=== PATIENT | male | born 1940 | race Hispanic/Latino ===

== ENCOUNTER 2018-04-15 14:24 | Inpatient (IN) | payer OTHER ==
[~2018-04-15] VITALS: Ht 160 cm; Wt 75.3 kg
[~2018-04-15 14:24] MED LIST: APIX5TAB PO; ASPI-1146 PO; ATOR40TA69 PO; DUTA0.5C17 PO; GLIP1TAB6 PO; LISI40TA4 PO; NITR0.4T SL
[2018-04-15 15:12] LABS: POTASSIUM 5.4 mmol/L (3.5-5.1)
[2018-04-15 15:14] LABS: INR 1.09 (0.85-1.15); PARTIAL THROMBOPLASTIN TIME 28.3 SEC (26.3-35.5); PROTHROMBIN TIME 11.4 SEC (9.6-11.6)
[2018-04-15 15:16] LABS: ALBUMIN 3.6 g/dL (3.5-5.0); BILIRUBIN,TOTAL 0.5 mg/dL (0.2-1.0); MAGNESIUM 1.9 mg/dL (1.80-2.40); TOTAL PROTEIN, SERUM 7.2 g/dL (6.0-8.3)
[2018-04-15 15:18] VITALS: BP 140/61
[2018-04-15 15:34] LABS: BASOPHILS % (AUTO) 0.6 % (0.0-5.0); EOSINOPHILS % (AUTO) 2.5 % (0.0-8.0); HEMATOCRIT 38.1 % (42-54); LYMPHOCYTES % (AUTO) 25.1 % (21.0-51.0); MEAN CORPUSCULAR HEMOGLOBIN 30.2 pg (27.0-33.0); MEAN CORPUSCULAR HGB CONC 34.1 g/dL (32.0-36.0); MEAN CORPUSCULAR VOLUME 88.8 fL (79-99); MONOCYTES % (AUTO) 5.3 % (3.0-13.0); NEUTROPHILS % (AUTO) 66.5 % (40.0-77.0); PLATELET COUNT (AUTO) 185 K/uL (130-400); RED BLOOD CELL COUNT(AUTO) 4.28 MIL/uL (4.50-6.20); RED CELL DISTRIBUTION WIDTH 15.4 % (11.0-15.5)
[2018-04-15] MEDS ORDERED: GLIP1TAB6 PO (15:37)
[2018-04-15] MEDS ORDERED: PIND10TA2 PO (15:37)
[2018-04-15] MEDS ORDERED: SIMV20TA6 PO (15:37)
[2018-04-15 15:44] LABS: B-TYPE NATRIURETIC PEPTIDE 1710 pg/mL (0-100)
[2018-04-15] MEDS ORDERED: SODIUM CHLORIDE 0.9% 10 ML VIAL IVP PRN (16:00)
[2018-04-15 16:36] VITALS: BP 107/73
[2018-04-15] MEDS ORDERED: FUROSEMIDE 10 MG/ML 4ML VIAL IVP SCH (16:45)
[2018-04-15 19:45] LABS: ABG BASE EXCESS -2.6 mmol/L (-2.0-3.0); ABG HCO3 21.2 mmol/L (21.0-28.0); ABG OXYGEN SATURATION 95.6 % (95.0-99.0); ABG PCO2 34 mmHg (35-48)
[2018-04-15] MEDS ORDERED: APIXABAN 5 MG TABLET PO ONE (19:57)
[2018-04-15] MEDS: PINDOLOL 5 MG TAB PO SCH (19:58)
[2018-04-15] MEDS: APIXABAN 5 MG TABLET PO SCH (19:58)
[2018-04-15] MEDS: SIMVASTATIN 20 MG TABLET PO SCH (19:59)
[2018-04-15 20:05] VITALS: BP 137/71
[2018-04-15 20:43] LABS: APPEARANCE,URINE Clear (CLEAR); BILIRUBIN,URINE Negative (NEGATIVE); COLOR,URINE Yellow (YELLOW); GLUCOSE, URINE (UA) Negative (NEGATIVE); KETONES,URINE Negative (NEGATIVE); LEUKOCYTE ESTERASE ,URINE Negative (NEGATIVE); NITRATE,URINE Negative (NEGATIVE); OCCULT BLOOD,URINE Negative (NEGATIVE); PROTEIN,URINE POS 2+ (NEGATIVE); UROBILINOGEN,URINE 0.2 mg/dL (0.2-1.0)
[2018-04-15 21:20] LABS: BACTERIA,URINE Rare /HPF (None Seen); RBC,URINE 0-1 /HPF (0-1); SQUAMOUS EPITHELIAL CELL,UR Rare /HPF (0-2); WBC,URINE 0-1 /HPF (0-1)
[2018-04-16] VITALS (8 sets, daily range): BP systolic 104–169; BP diastolic 53–76
[2018-04-16 03:53] LABS: HEMATOCRIT 36.3 % (42-54); MEAN CORPUSCULAR HEMOGLOBIN 29.4 pg (27.0-33.0); MEAN CORPUSCULAR VOLUME 86.6 fL (79-99); NUCLEATED RED BLOOD CELLS 0.1 % (0.0-0.19); PLATELET COUNT (AUTO) 163 K/uL (130-400); RED BLOOD CELL COUNT(AUTO) 4.19 MIL/uL (4.50-6.20); RED CELL DISTRIBUTION WIDTH 15.2 % (11.0-15.5); WHITE BLOOD COUNT (AUTO) 7.9 K/uL (4.8-10.8)
[2018-04-16 04:02] LABS: CREATININE 2.2 mg/dL (0.5-1.5); POTASSIUM 4.8 mmol/L (3.5-5.1)
[2018-04-16 04:11] LABS: BAND NEUTROPHILS % (MANUAL) 7 % (0-2); EOSINOPHILS % (MANUAL) 1 % (1-6); LYMPHOCYTES % (MANUAL) 23 % (22-44); MAN.DIFF COMMENT-IMPRESSION MANUAL DIFFERENTIAL; MONOCYTES % (MANUAL) 5 % (2-9); PLATELET MORPHOLOGY COMMENT ADEQUATE; REACTIVE LYMPHOCYTES 4 % (0-0); SEGMENTED NEUTROPHILS % 60 % (40-70)
[2018-04-16] MEDS ORDERED: GLIPIZIDE 5 MG TABLET PO SCH (07:30)
[2018-04-16] MEDS ORDERED: FUROSEMIDE 10 MG/ML 4ML VIAL IV SCH (07:45)
[2018-04-16] MEDS: PINDOLOL 5 MG TAB PO SCH ×2 (08:09→18:59)
[2018-04-16] MEDS: LISINOPRIL 20 MG TABLET PO SCH (08:09)
[2018-04-16] MEDS: ASPIRIN 81MG TAB.CHEW PO SCH (08:10)
[2018-04-16] MEDS: APIXABAN 5 MG TABLET PO SCH ×2 (08:10→21:52)
[2018-04-16] MEDS ORDERED: ENOXAPARIN SODIUM 80 MG/0.8 ML SQ SCH (09:00)
[2018-04-16] MEDS: AVODART 0.5 MG PO SCH (09:00)
[2018-04-16 10:19] LABS: PROTEIN,URINE RANDOM 64.7 mg/dL (0-11.9)
[2018-04-16] MEDS ORDERED: IPRATROPIUM 0.5 MG/2.5 ML INH IH PRN (15:30)
[2018-04-16] MEDS: GLIPIZIDE 5 MG TABLET PO SCH (19:01)
[2018-04-16] MEDS: SIMVASTATIN 20 MG TABLET PO SCH (21:52)
[2018-04-17] VITALS (7 sets, daily range): BP systolic 113–145; BP diastolic 57–70
[2018-04-17 03:50] LABS: HEMATOCRIT 35.6 % (42-54); MEAN CORPUSCULAR HEMOGLOBIN 30.1 pg (27.0-33.0); MEAN CORPUSCULAR HGB CONC 34.8 g/dL (32.0-36.0); MEAN CORPUSCULAR VOLUME 86.6 fL (79-99); PLATELET COUNT (AUTO) 174 K/uL (130-400); RED BLOOD CELL COUNT(AUTO) 4.11 MIL/uL (4.50-6.20); RED CELL DISTRIBUTION WIDTH 15.1 % (11.0-15.5); WHITE BLOOD COUNT (AUTO) 6.7 K/uL (4.8-10.8)
[2018-04-17 03:58] LABS: AMMONIA < 3 umol/L (11-32); CARBON DIOXIDE 25 mmol/L (21-32); CHLORIDE 106 mmol/L (101-111); CREATININE 2.2 mg/dL (0.5-1.5); GLOMERULAR FILTR. RATE CALC 31 mL/min (>60); GLUCOSE,RANDOM 117 mg/dL (70-105); POTASSIUM 4.2 mmol/L (3.5-5.1); SODIUM SERUM 140 mmol/L (136-145); UREA NITROGEN, BLOOD 35 mg/dL (7-18)
[2018-04-17 04:44] LABS: BASOPHILS % (MANUAL) 1 % (0-2); EOSINOPHILS % (MANUAL) 3 % (1-6); LYMPHOCYTES % (MANUAL) 37 % (22-44); MAN.DIFF COMMENT-IMPRESSION MANUAL DIFFERENTIAL; MONOCYTES % (MANUAL) 7 % (2-9); SEGMENTED NEUTROPHILS % 52 % (40-70)
[2018-04-17 04:46] LABS: PLATELET MORPHOLOGY COMMENT ADEQUATE
[2018-04-17] MEDS: PINDOLOL 5 MG TAB PO SCH ×2 (06:15→19:00)
[2018-04-17] MEDS: GLIPIZIDE 5 MG TABLET PO SCH ×2 (06:15→15:42)
[2018-04-17] MEDS: AVODART 0.5 MG PO SCH (08:36)
[2018-04-17] MEDS: LISINOPRIL 20 MG TABLET PO SCH (08:37)
[2018-04-17] MEDS: ASPIRIN 81MG TAB.CHEW PO SCH (08:37)
[2018-04-17] MEDS: APIXABAN 5 MG TABLET PO SCH ×2 (08:37→21:33)
[2018-04-17] MEDS ORDERED: FUROSEMIDE 10 MG/ML 4ML VIAL IV ONE (16:00)
[2018-04-17] MEDS: SIMVASTATIN 20 MG TABLET PO SCH (21:33)
[2018-04-17] MEDS ORDERED: FUROSEMIDE 10 MG/ML 10ML VIAL IVP ONE (21:45)
[2018-04-18 03:00] VITALS: BP 119/60
[2018-04-18 04:17] LABS: CREATININE 2.4 mg/dL (0.5-1.5); MAGNESIUM 1.9 mg/dL (1.80-2.40); PHOSPHORUS 5.2 mg/dL (2.5-4.9); POTASSIUM 4.1 mmol/L (3.5-5.1); URIC ACID 8.9 mg/dL (2.6-7.2)
[2018-04-18 04:18] LABS: HEMATOCRIT 37.7 % (42-54); MEAN CORPUSCULAR HEMOGLOBIN 29.5 pg (27.0-33.0); MEAN CORPUSCULAR HGB CONC 34.2 g/dL (32.0-36.0); MEAN CORPUSCULAR VOLUME 86.2 fL (79-99); PLATELET COUNT (AUTO) 146 K/uL (130-400); RED BLOOD CELL COUNT(AUTO) 4.38 MIL/uL (4.50-6.20); RED CELL DISTRIBUTION WIDTH 14.8 % (11.0-15.5); WHITE BLOOD COUNT (AUTO) 7.4 K/uL (4.8-10.8)
[2018-04-18 04:22] LABS: B-TYPE NATRIURETIC PEPTIDE 172 pg/mL (0-100)
[2018-04-18 04:34] LABS: BASOPHILS % (MANUAL) 2 % (0-2); EOSINOPHILS % (MANUAL) 4 % (1-6); LYMPHOCYTES % (MANUAL) 35 % (22-44); MAN.DIFF COMMENT-IMPRESSION MANUAL DIFFERENTIAL; MONOCYTES % (MANUAL) 4 % (2-9); SEGMENTED NEUTROPHILS % 55 % (40-70)
[2018-04-18 04:35] LABS: PLATELET MORPHOLOGY COMMENT ADEQUATE
[2018-04-18 07:49] VITALS: BP 133/58
[2018-04-18] MEDS: LISINOPRIL 20 MG TABLET PO SCH (08:50)
[2018-04-18] MEDS: ASPIRIN 81MG TAB.CHEW PO SCH (08:50)
[2018-04-18] MEDS: APIXABAN 5 MG TABLET PO SCH ×2 (08:50→20:10)
[2018-04-18] MEDS: GLIPIZIDE 5 MG TABLET PO SCH ×2 (08:51→16:37)
[2018-04-18] MEDS: PINDOLOL 5 MG TAB PO SCH ×2 (08:51→18:39)
[2018-04-18] MEDS: AVODART 0.5 MG PO SCH (08:51)
[2018-04-18 11:37] VITALS: BP 128/65
[2018-04-18] MEDS: FUROSEMIDE 20 MG TABLET PO SCH (12:30)
[2018-04-18 16:07] VITALS: BP 142/64
[2018-04-18 20:10] VITALS: BP 138/67
[2018-04-18] MEDS: SIMVASTATIN 20 MG TABLET PO SCH (20:10)
[2018-04-19 00:02] VITALS: BP 140/72
[2018-04-19 04:00] LABS: HEMATOCRIT 34.8 % (42-54); MEAN CORPUSCULAR HEMOGLOBIN 30.7 pg (27.0-33.0); MEAN CORPUSCULAR HGB CONC 35.4 g/dL (32.0-36.0); MEAN CORPUSCULAR VOLUME 86.5 fL (79-99); PLATELET COUNT (AUTO) 168 K/uL (130-400); RED BLOOD CELL COUNT(AUTO) 4.02 MIL/uL (4.50-6.20); RED CELL DISTRIBUTION WIDTH 14.7 % (11.0-15.5); WHITE BLOOD COUNT (AUTO) 7.2 K/uL (4.8-10.8)
[2018-04-19 04:04] VITALS: BP 122/63
[2018-04-19 04:11] LABS: BASOPHILS % (MANUAL) 1 % (0-2); LYMPHOCYTES % (MANUAL) 29 % (22-44); MONOCYTES % (MANUAL) 8 % (2-9); SEGMENTED NEUTROPHILS % 62 % (40-70)
[2018-04-19 04:12] LABS: MAN.DIFF COMMENT-IMPRESSION MANUAL DIFFERENTIAL; PLATELET MORPHOLOGY COMMENT ADEQUATE
[2018-04-19 04:21] LABS: CREATININE 2.6 mg/dL (0.5-1.5); POTASSIUM 4.2 mmol/L (3.5-5.1)
[2018-04-19] MEDS: PINDOLOL 5 MG TAB PO SCH (06:31)
[2018-04-19] MEDS: GLIPIZIDE 5 MG TABLET PO SCH (06:31)
[2018-04-19 07:40] VITALS: BP 129/51
[2018-04-19] MEDS: LISINOPRIL 20 MG TABLET PO SCH (08:06)
[2018-04-19] MEDS: APIXABAN 5 MG TABLET PO SCH (08:06)
[2018-04-19] MEDS: ASPIRIN 81MG TAB.CHEW PO SCH (08:06)
[2018-04-19] MEDS: FUROSEMIDE 20 MG TABLET PO SCH (08:07)
[2018-04-19] MEDS: AVODART 0.5 MG PO SCH (08:07)
[2018-04-19] MEDS ORDERED: FUROSEMIDE 20 MG TABLET PO SCH (09:00)
[2018-04-19] MEDS ORDERED: ASPI-1005 PO (11:09)
[2018-04-19] MEDS ORDERED: FURO20TA4 PO (11:09)
[2018-04-19 11:37] VITALS: BP 112/56
== END 2018-04-19 15:19 | disposition home or self-care (01) | DRG 682 ==
LOC: EDH 14:24 → 2DH 14:25
PROVIDERS: ADMIT Internal Medicine Critical Care Medicine; ATTEND Internal Medicine Critical Care Medicine
DX: N17.9 Acute kidney failure, unspecified (principal); I50.33 Acute on chronic diastolic (congestive) heart failure; I13.0 Hypertensive heart and chronic kidney disease with heart failure and stage 1 through stage 4 chronic kidney disease, or unspecified chronic kidney disease; I42.9 Cardiomyopathy, unspecified; N18.4 Chronic kidney disease, stage 4 (severe); E66.9 Obesity, unspecified; E11.22 Type 2 diabetes mellitus with diabetic chronic kidney disease; F17.210 Nicotine dependence, cigarettes, uncomplicated; D64.9 Anemia, unspecified; E11.51 Type 2 diabetes mellitus with diabetic peripheral angiopathy without gangrene; E55.9 Vitamin D deficiency, unspecified; E78.00 Pure hypercholesterolemia, unspecified; E78.5 Hyperlipidemia, unspecified; G47.33 Obstructive sleep apnea (adult) (pediatric); I25.10 Atherosclerotic heart disease of native coronary artery without angina pectoris; I48.0 Paroxysmal atrial fibrillation; N40.0 Benign prostatic hyperplasia without lower urinary tract symptoms; Z79.01 Long term (current) use of anticoagulants; Z82.49 Family history of ischemic heart disease and other diseases of the circulatory system; Z83.3 Family history of diabetes mellitus; Z95.1 Presence of aortocoronary bypass graft; Z68.29 Body mass index [BMI] 29.0-29.9, adult; Z98.42 Cataract extraction status, left eye; Z98.41 Cataract extraction status, right eye; Z89.421 Acquired absence of other right toe(s); Z79.84 Long term (current) use of oral hypoglycemic drugs
CPT/HCPCS: 36415; 36600; 70450; 71045; 71046; 76705; 76770; 78582; 80048; 80053; 81001; 82140; 82570; 82803; 82948; 83735; 83880; 84100; 84156; 84550; 85025; 85378; 85610; 85730; 93306; 93970; 94664; A9540; A9558; J1940

== ENCOUNTER 2019-04-02 17:35 | Emergency (ER) | payer OTHER ==
[~2019-04-02 17:35] MED LIST changes: +ASPI-1005 PO; -ASPI-1146 PO; -ATOR40TA69 PO; +FURO20TA4 PO; +PIND10TA2 PO; +SIMV20TA6 PO
[2019-04-02 18:44] LABS: BASOPHILS % (AUTO) 0.7 % (0.0-5.0); EOSINOPHILS % (AUTO) 4.4 % (0.0-8.0); HEMATOCRIT 38.1 % (42-54); LYMPHOCYTES % (AUTO) 26.1 % (21.0-51.0); MEAN CORPUSCULAR HEMOGLOBIN 30.4 pg (27.0-33.0); MEAN CORPUSCULAR HGB CONC 34.5 g/dL (32.0-36.0); MEAN CORPUSCULAR VOLUME 87.9 fL (79-99); MONOCYTES % (AUTO) 7.3 % (3.0-13.0); NEUTROPHILS % (AUTO) 61.5 % (40.0-77.0); PLATELET COUNT (AUTO) 144 K/uL (130-400); RED BLOOD CELL COUNT(AUTO) 4.33 MIL/uL (4.50-6.20); WHITE BLOOD COUNT (AUTO) 5.2 K/uL (4.8-10.8)
[2019-04-02 18:53] LABS: CREATININE 2.3 mg/dL (0.5-1.5); POTASSIUM 4.7 mmol/L (3.5-5.1)
== END 2019-04-02 20:52 | disposition home or self-care (01) ==
LOC: EDH 17:35
DX: R79.89 Other specified abnormal findings of blood chemistry (principal); E11.9 Type 2 diabetes mellitus without complications; I48.91 Unspecified atrial fibrillation; I50.9 Heart failure, unspecified; N18.9 Chronic kidney disease, unspecified; Z95.1 Presence of aortocoronary bypass graft; Z98.890 Other specified postprocedural states
CPT/HCPCS: 36415; 80048; 85025; 93005

== ENCOUNTER 2020-07-06 12:49 | Observation (INO) | payer OTHER ==
[~2020-07-06] VITALS: Ht 157.5 cm; Wt 68.9 kg
[~2020-07-06 12:49] MED LIST changes: -DUTA0.5C17 PO; +DUTA0.5C18 PO; +SIMV-43 PO; -SIMV20TA6 PO
[2020-07-06 13:27] LABS: BASOPHILS % (AUTO) 0.3 % (0.0-5.0); EOSINOPHILS % (AUTO) 1.1 % (0.0-8.0); HEMATOCRIT 26.3 % (42-54); LYMPHOCYTES % (AUTO) 5.4 % (21.0-51.0); MEAN CORPUSCULAR HEMOGLOBIN 29.2 pg (27.0-33.0); MEAN CORPUSCULAR HGB CONC 35.4 g/dL (32.0-36.0); MEAN CORPUSCULAR VOLUME 82.4 fL (79-99); MONOCYTES % (AUTO) 4.1 % (3.0-13.0); NEUTROPHILS % (AUTO) 88.2 % (40.0-77.0); PLATELET COUNT (AUTO) 286 K/uL (130-400); RED BLOOD CELL COUNT(AUTO) 3.19 MIL/uL (4.50-6.20); RED CELL DISTRIBUTION WIDTH 13.2 % (11.0-15.5); WHITE BLOOD COUNT (AUTO) 15.9 K/uL (4.8-10.8)
[2020-07-06 13:41] LABS: INR 1.18 (0.85-1.15); PROTHROMBIN TIME 12.4 SEC (9.6-11.6)
[2020-07-06 13:42] LABS: PARTIAL THROMBOPLASTIN TIME 27.9 SEC (26.3-35.5)
[2020-07-06 13:48] LABS: ALBUMIN 2.8 g/dL (3.5-5.0); BILIRUBIN,TOTAL 0.6 mg/dL (0.2-1.0); CREATININE 6.5 mg/dL (0.5-1.5); POTASSIUM 5.2 mmol/L (3.5-5.1); TOTAL PROTEIN, SERUM 7.3 g/dL (6.0-8.3)
[2020-07-06 13:53] LABS: B-TYPE NATRIURETIC PEPTIDE 617 pg/mL (0-100)
[2020-07-06] MEDS ORDERED: ZOSYN 3.375GM+NS 50ML 50 ML IV ONE (15:11)
[2020-07-06] MEDS: CEFTRIAXONE SODIUM 1 GM IVP SCH (18:00)
[2020-07-06] MEDS ORDERED: CEFTRIAXONE SODIUM 1 GM ONE (18:11)
[2020-07-06] MEDS ORDERED: SODIUM CHLORIDE 0.9% 50 ML IV ONE (18:12)
[2020-07-06] MEDS ORDERED: HEPARIN SODIUM 5000UNIT/ML 1ML VIAL ONE (21:20)
[2020-07-07 06:03] LABS: BASOPHILS % (AUTO) 0.2 % (0.0-5.0); EOSINOPHILS % (AUTO) 0.9 % (0.0-8.0); HEMATOCRIT 23.4 % (42-54); MEAN CORPUSCULAR HEMOGLOBIN 28.7 pg (27.0-33.0); MEAN CORPUSCULAR HGB CONC 33.8 g/dL (32.0-36.0); MEAN CORPUSCULAR VOLUME 85.1 fL (79-99); MONOCYTES % (AUTO) 5.7 % (3.0-13.0); NEUTROPHILS % (AUTO) 85.2 % (40.0-77.0); PLATELET COUNT (AUTO) 214 K/uL (130-400); RED BLOOD CELL COUNT(AUTO) 2.75 MIL/uL (4.50-6.20); RED CELL DISTRIBUTION WIDTH 13.5 % (11.0-15.5); WHITE BLOOD COUNT (AUTO) 10.6 K/uL (4.8-10.8)
[2020-07-07 06:17] LABS: CREATININE 3.1 mg/dL (0.5-1.5); POTASSIUM 3.6 mmol/L (3.5-5.1)
[2020-07-07 06:22] LABS: ALBUMIN 2.3 g/dL (3.5-5.0); BILIRUBIN,TOTAL 0.5 mg/dL (0.2-1.0); PHOSPHORUS 3.3 mg/dL (2.5-4.9); TOTAL PROTEIN, SERUM 6.2 g/dL (6.0-8.3)
[2020-07-07] MEDS ORDERED: EPOETIN ALFA 10,000 UNIT/ML VIAL SQ SCH (09:15)
[2020-07-07] MEDS ORDERED: COMPOUND IV MISC 1 EACH IVSOLN MISC PRN (09:30)
[2020-07-07 11:52] VITALS: BP 116/49
[2020-07-07] MEDS ORDERED: ONDANSETRON HCL 4 MG/2 ML VIAL IVP PRN (12:30)
[2020-07-07] MEDS: IRON SUCROSE COMPLEX 100 MG in SODIUM CHLORIDE 0.9% 50 ML IV SCH (16:55)
[2020-07-07] MEDS: CEFTRIAXONE SODIUM 1 GM IVP SCH (16:55)
[2020-07-07 17:29] VITALS: BP 144/72
[2020-07-07 19:56] VITALS: BP 108/45
[2020-07-07 23:57] VITALS: BP 143/50
[2020-07-08 04:00] VITALS: BP 124/43
[2020-07-08 04:41] LABS: HEMATOCRIT 23.9 % (42-54); MEAN CORPUSCULAR HEMOGLOBIN 28.9 pg (27.0-33.0); MEAN CORPUSCULAR HGB CONC 33.1 g/dL (32.0-36.0); MEAN CORPUSCULAR VOLUME 87.5 fL (79-99); PLATELET COUNT (AUTO) 213 K/uL (130-400); RED BLOOD CELL COUNT(AUTO) 2.73 MIL/uL (4.50-6.20); RED CELL DISTRIBUTION WIDTH 13.8 % (11.0-15.5)
[2020-07-08] MEDS ORDERED: HONEY 1 APPL/ML TUBE TP ONE (04:42)
[2020-07-08 05:22] LABS: CREATININE 5.5 mg/dL (0.5-1.5); PHOSPHORUS 5.2 mg/dL (2.5-4.9); POTASSIUM 4.7 mmol/L (3.5-5.1)
[2020-07-08 05:42] LABS: LYMPHOCYTES % (MANUAL) 8 % (22-44); MONOCYTES % (MANUAL) 5 % (2-9); SEGMENTED NEUTROPHILS % 87 % (40-70)
[2020-07-08 05:43] LABS: MAN.DIFF COMMENT-IMPRESSION MANUAL DIFFERENTIAL; PLATELET MORPHOLOGY COMMENT ADEQUATE
[2020-07-08 06:13] LABS: HEPATITIS A ANTIBODY IGM Negative (Negative); HEPATITIS B CORE IGM Negative (Negative); HEPATITIS Bs ANTIGEN SCREEN P Negative (Negative)
[2020-07-08 07:30] VITALS: BP 114/76
[2020-07-08] MEDS ORDERED: HONEY 1 APPL/ML TUBE TP SCH (09:00)
[2020-07-08] MEDS ORDERED: LACTULOSE 20 GM/30 ML UDCUP PO SCH (09:00)
[2020-07-08 11:00] VITALS: BP 146/57
[2020-07-08] MEDS: IRON SUCROSE COMPLEX 100 MG in SODIUM CHLORIDE 0.9% 50 ML IV SCH (12:19)
[2020-07-08] MEDS ORDERED: GLUCAGON 1MG KIT 1 MG ML IM PRN (12:30)
[2020-07-08] MEDS ORDERED: DEXTROSE 50%-WATER 50 ML DISP.SYRIN IV PRN (12:30)
[2020-07-08] MEDS ORDERED: HEPARIN SODIUM 5000UNIT/ML 1ML VIAL ONE (13:42)
[2020-07-08] MEDS ORDERED: NITROGLYCERIN 0.4 MG SL TAB SL PRN (14:30)
[2020-07-08] MEDS ORDERED: HEPARIN SODIUM 5000UNIT/ML 1ML VIAL IJ PRN ×2 (14:30)
[2020-07-08] MEDS ORDERED: 0.9% SODIUM CHLORIDE 1000 ML IV BAG IV PRN (14:30)
[2020-07-08] MEDS ORDERED: PHARMACY COMMUNICATION MISC PRN (14:30)
[2020-07-08] MEDS ORDERED: ACETAMINOPHEN 325 MG TAB PO PRN (14:30)
[2020-07-08] MEDS ORDERED: LIDOCAINE HCL-MPF 1% 2ML VIAL IJ PRN (14:30)
[2020-07-08] MEDS ORDERED: SODIUM CHLORIDE 0.9% 1000ML 1,000 ML IV PRN (14:30)
[2020-07-08 16:00] VITALS: BP 108/46
[2020-07-12] MEDS ORDERED: ISOS30TA6 PO (03:41)
== END 2020-07-08 19:15 | disposition home or self-care (01) ==
LOC: EDH 12:49 → INTOOBSV 17:03 → EDHIP 17:03 → OBSVTOIN 17:03 → 3BH 07-07 00:26 → EDHIP 07-07 02:13 → 3BH 07-07 11:01
PROVIDERS: ADMIT Internal Medicine; ATTEND Internal Medicine
DX: J18.1 Lobar pneumonia, unspecified organism (principal); Z20.828 Contact with and (suspected) exposure to other viral communicable diseases; R55 Syncope and collapse; I13.2 Hypertensive heart and chronic kidney disease with heart failure and with stage 5 chronic kidney disease, or end stage renal disease; E11.22 Type 2 diabetes mellitus with diabetic chronic kidney disease; N18.6 End stage renal disease; I50.9 Heart failure, unspecified; D72.829 Elevated white blood cell count, unspecified; R13.10 Dysphagia, unspecified; I48.0 Paroxysmal atrial fibrillation; E11.51 Type 2 diabetes mellitus with diabetic peripheral angiopathy without gangrene; I25.10 Atherosclerotic heart disease of native coronary artery without angina pectoris; N40.0 Benign prostatic hyperplasia without lower urinary tract symptoms; Z86.73 Personal history of transient ischemic attack (TIA), and cerebral infarction without residual deficits; Z99.2 Dependence on renal dialysis; Z95.1 Presence of aortocoronary bypass graft; Z93.1 Gastrostomy status; Z79.01 Long term (current) use of anticoagulants; Z79.82 Long term (current) use of aspirin; Z79.899 Other long term (current) drug therapy
CPT/HCPCS: 36415 ×3; 71045; 74018; 80048; 80053 ×2; 80074; 82948 ×6; 83605; 83690; 83880; 84100 ×2; 84484; 85025 ×3; 85610; 85730; 87040 ×2; 87426; 93005; 96365; 96366; 96375; 99285; G0378 ×44; J0696 ×2; J0885; J1644 ×2; J1756 ×2; J2405; J2543; U0003; 90935

== ENCOUNTER 2020-07-10 18:46 | Inpatient (IN) | payer OTHER ==
[~2020-07-10] VITALS: Ht 160 cm; Wt 65.8 kg
[~2020-07-10 18:46] MED LIST changes: -DUTA0.5C18 PO; +DUTA0.5C37 PO; -LISI40TA4 PO; +LISI40TA9 PO
[2020-07-10 20:22] LABS: BASOPHILS % (AUTO) 0.2 % (0.0-5.0); EOSINOPHILS % (AUTO) 0.3 % (0.0-8.0); HEMATOCRIT 21.3 % (42-54); LYMPHOCYTES % (AUTO) 6.3 % (21.0-51.0); MEAN CORPUSCULAR HEMOGLOBIN 29.7 pg (27.0-33.0); MEAN CORPUSCULAR HGB CONC 32.9 g/dL (32.0-36.0); MEAN CORPUSCULAR VOLUME 90.3 fL (79-99); MONOCYTES % (AUTO) 4.8 % (3.0-13.0); NEUTROPHILS % (AUTO) 87.1 % (40.0-77.0); NUCLEATED RED BLOOD CELLS 0.1 % (0.0-0.19); PLATELET COUNT (AUTO) 217 K/uL (130-400); RED BLOOD CELL COUNT(AUTO) 2.36 MIL/uL (4.50-6.20); RED CELL DISTRIBUTION WIDTH 14.8 % (11.0-15.5)
[2020-07-10 20:28] LABS: ABG BASE EXCESS 1.3 mmol/L (-2.0-3.0); ABG HCO3 24.2 mmol/L (21.0-28.0); ABG OXYGEN SATURATION 82.6 % (95.0-99.0); ABG PCO2 34 mmHg (35-48)
[2020-07-10 20:32] LABS: INR 1.34 (0.85-1.15)
[2020-07-10 20:33] LABS: PARTIAL THROMBOPLASTIN TIME 27.6 SEC (26.3-35.5)
[2020-07-10 20:35] LABS: CREATININE 6.1 mg/dL (0.5-1.5); POTASSIUM 5.2 mmol/L (3.5-5.1)
[2020-07-10 20:40] LABS: ALBUMIN 2.6 g/dL (3.5-5.0); BILIRUBIN,TOTAL 0.9 mg/dL (0.2-1.0); TOTAL PROTEIN, SERUM 6.7 g/dL (6.0-8.3)
[2020-07-10 20:54] LABS: B-TYPE NATRIURETIC PEPTIDE 3020 pg/mL (0-100)
[2020-07-10] MEDS ORDERED: AZITHROMYCIN 500MG+NS 250ML 250 ML IV ONE (22:12)
[2020-07-10] MEDS ORDERED: FUROSEMIDE 40MG VIAL ONE (22:12)
[2020-07-10] MEDS ORDERED: CEFTRIAXONE 1G VIAL ONE (22:13)
[2020-07-11 06:35] LABS: BASOPHILS % (AUTO) 0.2 % (0.0-5.0); EOSINOPHILS % (AUTO) 0.8 % (0.0-8.0); HEMATOCRIT 26.4 % (42-54); LYMPHOCYTES % (AUTO) 9.7 % (21.0-51.0); MEAN CORPUSCULAR HEMOGLOBIN 29.1 pg (27.0-33.0); MEAN CORPUSCULAR HGB CONC 33.3 g/dL (32.0-36.0); MEAN CORPUSCULAR VOLUME 87.4 fL (79-99); MONOCYTES % (AUTO) 5.2 % (3.0-13.0); NEUTROPHILS % (AUTO) 82.9 % (40.0-77.0); NUCLEATED RED BLOOD CELLS 0.2 % (0.0-0.19); PLATELET COUNT (AUTO) 181 K/uL (130-400); RED BLOOD CELL COUNT(AUTO) 3.02 MIL/uL (4.50-6.20); RED CELL DISTRIBUTION WIDTH 14.1 % (11.0-15.5); WHITE BLOOD COUNT (AUTO) 10.6 K/uL (4.8-10.8)
[2020-07-11 08:17] LABS: ALBUMIN 2.5 g/dL (3.5-5.0); BILIRUBIN,TOTAL 0.7 mg/dL (0.2-1.0); CREATININE 6.2 mg/dL (0.5-1.5); POTASSIUM 4.3 mmol/L (3.5-5.1)
[2020-07-11] MEDS: HYDRALAZINE 25MG TABLET PO SCH ×2 (14:00→21:00)
[2020-07-11] MEDS ORDERED: HEPARIN 5,000 UNIT VIAL ONE (15:11)
[2020-07-11] MEDS ORDERED: GLIPIZIDE 5 MG TABLET PO SCH (17:00)
[2020-07-11] MEDS ORDERED: METFORMIN HCL 500 MG TABLET PO SCH (17:00)
[2020-07-11] MEDS: ATORVASTATIN 20 MG TABLET PO SCH (21:00)
[2020-07-11] MEDS: APIXABAN 5 MG TABLET PO SCH (21:00)
[2020-07-11] MEDS: FINASTERIDE 5 MG TABLET PO SCH (21:00)
[2020-07-11] MEDS: CEFTRIAXONE 1G VIAL IVP SCH (22:00)
[2020-07-11] MEDS ORDERED: ASPIRIN 81MG CHEW TAB ONE (22:56)
[2020-07-11] MEDS ORDERED: ATORVASTATIN 20 MG TABLET ONE (22:57)
[2020-07-11] MEDS ORDERED: METFORMIN HCL 500 MG TABLET ONE (22:57)
[2020-07-11] MEDS ORDERED: GLIPIZIDE 5 MG TABLET ONE (22:58)
[2020-07-11] MEDS ORDERED: CEFTRIAXONE 1G VIAL ONE (22:59)
[2020-07-12] VITALS (7 sets, daily range): BP systolic 107–128; BP diastolic 46–68
[2020-07-12] MEDS ORDERED: HYDR-4153 PO (03:41)
[2020-07-12] MEDS ORDERED: ATOR20TA65 PO (03:41)
[2020-07-12] MEDS ORDERED: AMLO-258 PEG (03:41)
[2020-07-12] MEDS ORDERED: ISOS30TA92 PO (03:41)
[2020-07-12] MEDS ORDERED: DEXTROSE 50%-WATER 50 ML DISP.SYRIN IV ONE (05:17)
[2020-07-12] MEDS ORDERED: GLUCAGON 1MG KIT 1 MG ML IM PRN (05:30)
[2020-07-12] MEDS ORDERED: DEXTROSE 50%-WATER 50 ML DISP.SYRIN IV PRN (05:30)
[2020-07-12 05:37] LABS: HEMATOCRIT 27.3 % (42-54); MEAN CORPUSCULAR HEMOGLOBIN 29.6 pg (27.0-33.0); MEAN CORPUSCULAR VOLUME 89.8 fL (79-99); RED BLOOD CELL COUNT(AUTO) 3.04 MIL/uL (4.50-6.20); RED CELL DISTRIBUTION WIDTH 15.7 % (11.0-15.5); WHITE BLOOD COUNT (AUTO) 9.6 K/uL (4.8-10.8)
[2020-07-12 05:57] LABS: ALBUMIN 2.1 g/dL (3.5-5.0); BILIRUBIN,DIRECT 0.2 mg/dL (0.0-0.3); BILIRUBIN,TOTAL 0.6 mg/dL (0.2-1.0); CREATININE 4.1 mg/dL (0.5-1.5); POTASSIUM 3.4 mmol/L (3.5-5.1); TOTAL PROTEIN, SERUM 6.1 g/dL (6.0-8.3)
[2020-07-12] MEDS ORDERED: GLIPIZIDE 5 MG TABLET PO SCH (07:30)
[2020-07-12] MEDS ORDERED: METFORMIN HCL 500 MG TABLET PO SCH (08:00)
[2020-07-12] MEDS: APIXABAN 5 MG TABLET PO SCH ×2 (10:36→20:32)
[2020-07-12] MEDS: ISOSORBIDE MONO 30MG SR TAB PO SCH (10:36)
[2020-07-12] MEDS: ASPIRIN 81 MG EC TAB PO SCH (10:36)
[2020-07-12] MEDS: AMLODIPINE 5 MG TAB PO SCH (10:36)
[2020-07-12] MEDS: HONEY 1 APPL/ML TUBE TP SCH (10:37)
[2020-07-12] MEDS: HYDRALAZINE 25MG TABLET PO SCH ×3 (10:40→20:33)
[2020-07-12] MEDS: FINASTERIDE 5 MG TABLET PO SCH (20:33)
[2020-07-12] MEDS: ATORVASTATIN 20 MG TABLET PO SCH (20:33)
[2020-07-12] MEDS: CEFTRIAXONE 1G VIAL IVP SCH (22:00)
[2020-07-13 04:03] VITALS: BP 112/57
[2020-07-13 06:15] LABS: BASOPHILS % (AUTO) 0.3 % (0.0-5.0); EOSINOPHILS % (AUTO) 3.5 % (0.0-8.0); HEMATOCRIT 29.7 % (42-54); LYMPHOCYTES % (AUTO) 10.3 % (21.0-51.0); MEAN CORPUSCULAR HEMOGLOBIN 29.1 pg (27.0-33.0); MEAN CORPUSCULAR HGB CONC 33.3 g/dL (32.0-36.0); MEAN CORPUSCULAR VOLUME 87.4 fL (79-99); MONOCYTES % (AUTO) 6.8 % (3.0-13.0); NEUTROPHILS % (AUTO) 77.8 % (40.0-77.0); PLATELET COUNT (AUTO) 166 K/uL (130-400); RED CELL DISTRIBUTION WIDTH 15.7 % (11.0-15.5); WHITE BLOOD COUNT (AUTO) 10.4 K/uL (4.8-10.8)
[2020-07-13 06:25] LABS: CREATININE 5.2 mg/dL (0.5-1.5); POTASSIUM 3.8 mmol/L (3.5-5.1)
[2020-07-13] MEDS: ASPIRIN 81 MG EC TAB PO SCH (09:00)
[2020-07-13] MEDS: HYDRALAZINE 25MG TABLET PO SCH ×3 (09:00→21:24)
[2020-07-13 09:22] VITALS: BP 116/59
[2020-07-13] MEDS: HONEY 1 APPL/ML TUBE TP SCH (10:25)
[2020-07-13] MEDS ORDERED: HEPARIN 5,000 UNIT VIAL ONE (13:08)
[2020-07-13 14:25] VITALS: BP 126/63
[2020-07-13] MEDS: ISOSORBIDE MONO 30MG SR TAB PO SCH (15:23)
[2020-07-13] MEDS: AMLODIPINE 5 MG TAB PO SCH (15:23)
[2020-07-13 16:33] VITALS: BP 132/65
[2020-07-13 20:12] VITALS: BP 137/56
[2020-07-13] MEDS: FINASTERIDE 5 MG TABLET PO SCH (21:24)
[2020-07-13] MEDS: ATORVASTATIN 20 MG TABLET PO SCH (21:24)
[2020-07-13] MEDS: CEFTRIAXONE 1G VIAL IVP SCH (21:24)
[2020-07-14] VITALS (11 sets, daily range): BP systolic 97–186; BP diastolic 34–79
[2020-07-14] MEDS ORDERED: HALOPERIDOL INJ 5 MG/ML VIAL ONE (00:36)
[2020-07-14] MEDS: HALOPERIDOL INJ 5 MG/ML VIAL IV SCH (00:45)
[2020-07-14 04:39] LABS: BASOPHILS % (AUTO) 0.3 % (0.0-5.0); EOSINOPHILS % (AUTO) 1.6 % (0.0-8.0); HEMATOCRIT 27.8 % (42-54); LYMPHOCYTES % (AUTO) 8.7 % (21.0-51.0); MEAN CORPUSCULAR HEMOGLOBIN 29.9 pg (27.0-33.0); MEAN CORPUSCULAR HGB CONC 33.5 g/dL (32.0-36.0); MEAN CORPUSCULAR VOLUME 89.4 fL (79-99); MONOCYTES % (AUTO) 6.7 % (3.0-13.0); NEUTROPHILS % (AUTO) 81.7 % (40.0-77.0); PLATELET COUNT (AUTO) 163 K/uL (130-400); RED BLOOD CELL COUNT(AUTO) 3.11 MIL/uL (4.50-6.20); RED CELL DISTRIBUTION WIDTH 16.2 % (11.0-15.5); WHITE BLOOD COUNT (AUTO) 9.9 K/uL (4.8-10.8)
[2020-07-14 05:08] LABS: ALBUMIN 2.4 g/dL (3.5-5.0); BILIRUBIN,TOTAL 0.7 mg/dL (0.2-1.0); CREATININE 3.4 mg/dL (0.5-1.5); POTASSIUM 3.9 mmol/L (3.5-5.1); TOTAL PROTEIN, SERUM 6.5 g/dL (6.0-8.3)
[2020-07-14] MEDS: ASPIRIN 81 MG EC TAB PO SCH (08:52)
[2020-07-14] MEDS: ISOSORBIDE MONO 30MG SR TAB PO SCH (08:52)
[2020-07-14] MEDS: AMLODIPINE 5 MG TAB PO SCH (08:52)
[2020-07-14] MEDS: HONEY 1 APPL/ML TUBE TP SCH (08:53)
[2020-07-14] MEDS: HYDRALAZINE 25MG TABLET PO SCH ×2 (08:53→14:01)
[2020-07-14 16:35] LABS: ABG HCO3 24.2 mmol/L (21.0-28.0); ABG OXYGEN SATURATION 98.6 % (95.0-99.0); ABG PCO2 61 mmHg (35-48)
[2020-07-14 16:46] LABS: HEMATOCRIT 29.5 % (42-54); MEAN CORPUSCULAR HEMOGLOBIN 29.4 pg (27.0-33.0); MEAN CORPUSCULAR HGB CONC 31.2 g/dL (32.0-36.0); MEAN CORPUSCULAR VOLUME 94.2 fL (79-99); NUCLEATED RED BLOOD CELLS 0.1 % (0.0-0.19); RED BLOOD CELL COUNT(AUTO) 3.13 MIL/uL (4.50-6.20); RED CELL DISTRIBUTION WIDTH 17.3 % (11.0-15.5); WHITE BLOOD COUNT (AUTO) 17.2 K/uL (4.8-10.8)
[2020-07-14 17:00] LABS: INR 1.24 (0.85-1.15)
[2020-07-14 17:01] LABS: PARTIAL THROMBOPLASTIN TIME 28.9 SEC (26.3-35.5)
[2020-07-14 17:02] LABS: CREATININE 4.4 mg/dL (0.5-1.5); POTASSIUM 4.8 mmol/L (3.5-5.1)
[2020-07-14 17:14] LABS: ALBUMIN 2.4 g/dL (3.5-5.0); BILIRUBIN,TOTAL 0.6 mg/dL (0.2-1.0); TOTAL PROTEIN, SERUM 6.6 g/dL (6.0-8.3); TROPONIN I 0.24 ng/mL (0.00-0.06)
[2020-07-14] MEDS ORDERED: DOPAMINE 800MG/D5 250ML 250 ML IV PRN (17:18)
[2020-07-14] MEDS ORDERED: DOPAMINE HCL 400 MG/D5%-WATER 250 ML IV ONE (17:19)
[2020-07-14] MEDS: CEFTRIAXONE 1G VIAL IVP SCH (21:21)
[2020-07-14] MEDS: FINASTERIDE 5 MG TABLET PO SCH (21:21)
[2020-07-14] MEDS: ATORVASTATIN 20 MG TABLET PO SCH (21:21)
[2020-07-14 21:24] LABS: ABG BASE EXCESS 3.8 mmol/L (-2.0-3.0); ABG HCO3 28.7 mmol/L (21.0-28.0); ABG OXYGEN SATURATION 95.9 % (95.0-99.0); ABG PCO2 44 mmHg (35-48)
[2020-07-14] MEDS ORDERED: DIAZEPAM 5 MG TABLET ONE (21:36)
[2020-07-14] MEDS ORDERED: DIAZEPAM 5 MG TABLET PO PRN (21:45)
[2020-07-15] VITALS (24 sets, daily range): BP systolic 95–148; BP diastolic 45–94
[2020-07-15] MEDS: HALOPERIDOL INJ 5 MG/ML VIAL IV SCH (00:45)
[2020-07-15] MEDS: INSULIN LISPRO 100 UNIT/ML 3ML SQ SCH ×2 (06:14→17:56)
[2020-07-15] MEDS: ASPIRIN 81 MG EC TAB PO SCH (09:00)
[2020-07-15] MEDS: ISOSORBIDE MONO 30MG SR TAB PO SCH (09:00)
[2020-07-15] MEDS ORDERED: VANCOMYCIN 1G/250ML KIT 250 ML IV SCH (09:30)
[2020-07-15] MEDS: HONEY 1 APPL/ML TUBE TP SCH (09:38)
[2020-07-15] MEDS ORDERED: DOPAMINE HCL 400 MG/D5%-WATER 250 ML IV ONE (09:46)
[2020-07-15] MEDS: VANCOMYCIN 1G 1.5 GM in 0.9% NACL 250ML 250 ML IV SCH (12:30)
[2020-07-15] MEDS ORDERED: COMPOUND IV REFRIGERATED 1 EACH IVSOLN MISC PRN (12:45)
[2020-07-15] MEDS ORDERED: NOREPINEPHRIN 4MG/NS 250ML 250 ML IV ONE (14:55)
[2020-07-15] MEDS ORDERED: NOREPINEPHRIN 4MG/NS 250ML 250 ML IV SCH ×2 (15:00→15:30)
[2020-07-15] MEDS ORDERED: HEPARIN 5,000 UNIT VIAL ONE (15:18)
[2020-07-15] MEDS ORDERED: HEPARIN 5,000 UNIT VIAL IV SCH (15:45)
[2020-07-15 17:06] LABS: ABG BASE EXCESS 4.2 mmol/L (-2.0-3.0); ABG HCO3 29.1 mmol/L (21.0-28.0); ABG OXYGEN SATURATION 96.5 % (95.0-99.0); ABG PCO2 44 mmHg (35-48)
[2020-07-15] MEDS: ATORVASTATIN 20 MG TABLET PO SCH (20:44)
[2020-07-15] MEDS: FINASTERIDE 5 MG TABLET PO SCH (20:44)
[2020-07-15] MEDS: CEFEPIME HCL 1 GM VIAL IVP SCH (20:44)
[2020-07-16] VITALS (29 sets, daily range): BP systolic 89–139; BP diastolic 46–74
[2020-07-16] MEDS: HALOPERIDOL INJ 5 MG/ML VIAL IV SCH (00:45)
[2020-07-16 03:46] LABS: BASOPHILS % (AUTO) 0.3 % (0.0-5.0); EOSINOPHILS % (AUTO) 3.3 % (0.0-8.0); LYMPHOCYTES % (AUTO) 9.5 % (21.0-51.0); MEAN CORPUSCULAR HGB CONC 32.7 g/dL (32.0-36.0); MEAN CORPUSCULAR VOLUME 91.9 fL (79-99); MONOCYTES % (AUTO) 5.9 % (3.0-13.0); NEUTROPHILS % (AUTO) 80.3 % (40.0-77.0); PLATELET COUNT (AUTO) 150 K/uL (130-400); RED BLOOD CELL COUNT(AUTO) 2.83 MIL/uL (4.50-6.20); WHITE BLOOD COUNT (AUTO) 9.5 K/uL (4.8-10.8)
[2020-07-16 03:59] LABS: ALBUMIN 2.1 g/dL (3.5-5.0); BILIRUBIN,TOTAL 0.5 mg/dL (0.2-1.0); CREATININE 2.7 mg/dL (0.5-1.5); POTASSIUM 3.7 mmol/L (3.5-5.1); TOTAL PROTEIN, SERUM 6.1 g/dL (6.0-8.3)
[2020-07-16] MEDS: INSULIN LISPRO 100 UNIT/ML 3ML SQ SCH ×2 (06:00→18:00)
[2020-07-16] MEDS: ISOSORBIDE MONO 30MG SR TAB PO SCH (09:21)
[2020-07-16] MEDS: ASPIRIN 81 MG EC TAB PO SCH (09:21)
[2020-07-16] MEDS: CEFEPIME HCL 1 GM VIAL IVP SCH ×2 (09:22→21:19)
[2020-07-16] MEDS: HONEY 1 APPL/ML TUBE TP SCH (09:23)
[2020-07-16] MEDS: VANCOMYCIN 1G 1.5 GM in 0.9% NACL 250ML 250 ML IV SCH (09:43)
[2020-07-16] MEDS ORDERED: HEPARIN 5,000 UNIT VIAL SQ SCH (18:15)
[2020-07-16] MEDS: ATORVASTATIN 20 MG TABLET PO SCH (21:19)
[2020-07-16] MEDS: FINASTERIDE 5 MG TABLET PO SCH (21:20)
[2020-07-17] VITALS (15 sets, daily range): BP systolic 111–129; BP diastolic 45–77
[2020-07-17] MEDS: HEPARIN 5,000 UNIT VIAL SQ SCH ×2 (00:14→13:07)
[2020-07-17] MEDS: HALOPERIDOL INJ 5 MG/ML VIAL IV SCH ×2 (00:45→23:47)
[2020-07-17 03:58] LABS: BASOPHILS % (AUTO) 0.4 % (0.0-5.0); EOSINOPHILS % (AUTO) 3.7 % (0.0-8.0); HEMATOCRIT 27.4 % (42-54); LYMPHOCYTES % (AUTO) 12.3 % (21.0-51.0); MEAN CORPUSCULAR HEMOGLOBIN 29.4 pg (27.0-33.0); MEAN CORPUSCULAR HGB CONC 32.1 g/dL (32.0-36.0); MEAN CORPUSCULAR VOLUME 91.6 fL (79-99); MONOCYTES % (AUTO) 7.4 % (3.0-13.0); NEUTROPHILS % (AUTO) 75.1 % (40.0-77.0); PLATELET COUNT (AUTO) 162 K/uL (130-400); RED BLOOD CELL COUNT(AUTO) 2.99 MIL/uL (4.50-6.20); RED CELL DISTRIBUTION WIDTH 17.1 % (11.0-15.5); WHITE BLOOD COUNT (AUTO) 8.6 K/uL (4.8-10.8)
[2020-07-17 04:16] LABS: ALBUMIN 2.3 g/dL (3.5-5.0); BILIRUBIN,TOTAL 0.5 mg/dL (0.2-1.0); CREATININE 2.6 mg/dL (0.5-1.5); POTASSIUM 3.5 mmol/L (3.5-5.1); TOTAL PROTEIN, SERUM 6.5 g/dL (6.0-8.3)
[2020-07-17] MEDS: INSULIN LISPRO 100 UNIT/ML 3ML SQ SCH ×2 (05:52→18:00)
[2020-07-17] MEDS: VANCOMYCIN 1G 1.5 GM in 0.9% NACL 250ML 250 ML IV SCH (07:21)
[2020-07-17] MEDS: ASPIRIN 81 MG EC TAB PO SCH (08:46)
[2020-07-17] MEDS: HONEY 1 APPL/ML TUBE TP SCH (08:47)
[2020-07-17] MEDS: ISOSORBIDE MONO 30MG SR TAB PO SCH (08:47)
[2020-07-17] MEDS: CEFEPIME HCL 1 GM VIAL IVP SCH ×2 (08:47→23:46)
[2020-07-17] MEDS: NEOMY SULF/BACITRAC ZN/POLY OINT 30GM TUBE TP SCH ×2 (13:08→23:47)
[2020-07-17] MEDS: FINASTERIDE 5 MG TABLET PO SCH (23:45)
[2020-07-17] MEDS: ATORVASTATIN 20 MG TABLET PO SCH (23:45)
[2020-07-18] VITALS (11 sets, daily range): BP systolic 102–155; BP diastolic 46–71
[2020-07-18] MEDS: INSULIN LISPRO 100 UNIT/ML 3ML SQ SCH ×2 (06:00→18:00)
[2020-07-18 06:41] LABS: BASOPHILS % (AUTO) 0.7 % (0.0-5.0); EOSINOPHILS % (AUTO) 4.1 % (0.0-8.0); LYMPHOCYTES % (AUTO) 15.4 % (21.0-51.0); MEAN CORPUSCULAR HEMOGLOBIN 29.2 pg (27.0-33.0); MEAN CORPUSCULAR HGB CONC 31.6 g/dL (32.0-36.0); MEAN CORPUSCULAR VOLUME 92.3 fL (79-99); MONOCYTES % (AUTO) 7.8 % (3.0-13.0); NEUTROPHILS % (AUTO) 70.7 % (40.0-77.0); PLATELET COUNT (AUTO) 172 K/uL (130-400); RED BLOOD CELL COUNT(AUTO) 3.36 MIL/uL (4.50-6.20); RED CELL DISTRIBUTION WIDTH 17.4 % (11.0-15.5); WHITE BLOOD COUNT (AUTO) 7.5 K/uL (4.8-10.8)
[2020-07-18 06:57] LABS: CREATININE 2.3 mg/dL (0.5-1.5); MAGNESIUM 2.5 mg/dL (1.80-2.40); PHOSPHORUS 2.4 mg/dL (2.5-4.9); POTASSIUM 3.5 mmol/L (3.5-5.1)
[2020-07-18] MEDS: ASPIRIN 81 MG EC TAB PO SCH (09:00)
[2020-07-18] MEDS: NEOMY SULF/BACITRAC ZN/POLY OINT 30GM TUBE TP SCH ×3 (09:00→21:47)
[2020-07-18] MEDS ORDERED: BUPIVACAINE/PF 0.25% 30ML VIAL IJ ONE (09:11)
[2020-07-18] MEDS ORDERED: CEFAZOLIN SODIUM 1 GM VIAL ONE (09:11)
[2020-07-18] MEDS ORDERED: MIDAZOLAM HCL 1 MG/ML 2ML VIAL ONE (09:12)
[2020-07-18] MEDS ORDERED: FENTANYL CITRATE PF 50 MCG/1 ML 2ML VIAL ONE (09:12)
[2020-07-18] MEDS ORDERED: LIDOCAINE HCL 1% MDV 50ML VIAL ONE (09:12)
[2020-07-18] MEDS: CEFEPIME HCL 1 GM VIAL IVP SCH ×2 (10:40→21:46)
[2020-07-18] MEDS: ISOSORBIDE MONO 30MG SR TAB PO SCH (10:40)
[2020-07-18] MEDS: HONEY 1 APPL/ML TUBE TP SCH (10:41)
[2020-07-18] MEDS ORDERED: VANCOMYCIN 1G/250ML KIT 500 ML IV ONE (11:00)
[2020-07-18] MEDS ORDERED: KETAMINE 50MG/ML SYRINGE 50 MG/ML DISP.SYRIN IV ONE (11:32)
[2020-07-18] MEDS ORDERED: PROPOFOL 10 MG/ML 20ML VIAL IV ONE (11:34)
[2020-07-18] MEDS ORDERED: SUCCINYLCHOLINE 200MG/10ML SYR ONE (11:48)
[2020-07-18] MEDS: VANCOMYCIN 1G 1.5 GM in 0.9% NACL 250ML 250 ML IV SCH (12:30)
[2020-07-18] MEDS ORDERED: HEPARIN 5,000 UNIT VIAL ONE (17:20)
[2020-07-18] MEDS ORDERED: 0.9%NACL 1000ML IV PRN (17:45)
[2020-07-18] MEDS ORDERED: 0.9%NACL 1000ML 1,000 ML IV PRN (17:45)
[2020-07-18] MEDS ORDERED: HEPARIN 5,000 UNIT VIAL IJ PRN (17:45)
[2020-07-18] MEDS ORDERED: ACETAMINOPHEN 325 MG TAB PO PRN (17:45)
[2020-07-18] MEDS: ATORVASTATIN 20 MG TABLET PO SCH (21:46)
[2020-07-18] MEDS: FINASTERIDE 5 MG TABLET PO SCH (21:46)
[2020-07-19] VITALS: BP 109/60
[2020-07-19] MEDS: HALOPERIDOL INJ 5 MG/ML VIAL IV SCH ×2 (00:44→22:30)
[2020-07-19 04:00] VITALS: BP 109/55
[2020-07-19] MEDS: INSULIN LISPRO 100 UNIT/ML 3ML SQ SCH ×2 (06:02→18:00)
[2020-07-19 07:48] VITALS: BP 110/51
[2020-07-19] MEDS: VANCOMYCIN 1G 1.5 GM in 0.9% NACL 250ML 250 ML IV SCH (10:48)
[2020-07-19] MEDS: CEFEPIME HCL 1 GM VIAL IVP SCH ×2 (10:54→20:53)
[2020-07-19] MEDS: ASPIRIN 81 MG EC TAB PO SCH (10:54)
[2020-07-19] MEDS: ISOSORBIDE MONO 30MG SR TAB PO SCH (10:54)
[2020-07-19] MEDS: NEOMY SULF/BACITRAC ZN/POLY OINT 30GM TUBE TP SCH ×3 (10:55→20:54)
[2020-07-19] MEDS: HONEY 1 APPL/ML TUBE TP SCH (10:56)
[2020-07-19 11:45] VITALS: BP 101/48
[2020-07-19] MEDS ORDERED: DIATR MEGLU/DIATRIZOATE SODIUM 30 ML BOTTLE ONE (13:29)
[2020-07-19 16:08] VITALS: BP 95/38
[2020-07-19 19:29] VITALS: BP 107/48
[2020-07-19] MEDS: FINASTERIDE 5 MG TABLET PO SCH (20:53)
[2020-07-19] MEDS: ATORVASTATIN 20 MG TABLET PO SCH (20:53)
[2020-07-19] MEDS: APIXABAN 2.5 MG TABLET PO SCH (20:53)
[2020-07-19] MEDS ORDERED: LACTULOSE 20 GM/30 ML UDCUP PO SCH (22:01)
[2020-07-20 00:13] VITALS: BP 154/74
[2020-07-20 03:35] VITALS: BP 126/53
[2020-07-20] MEDS: INSULIN LISPRO 100 UNIT/ML 3ML SQ SCH ×2 (06:26→18:49)
[2020-07-20 06:51] LABS: HEMATOCRIT 25.1 % (42-54); MEAN CORPUSCULAR HEMOGLOBIN 29.8 pg (27.0-33.0); MEAN CORPUSCULAR HGB CONC 32.3 g/dL (32.0-36.0); MEAN CORPUSCULAR VOLUME 92.3 fL (79-99); RED BLOOD CELL COUNT(AUTO) 2.72 MIL/uL (4.50-6.20); RED CELL DISTRIBUTION WIDTH 17.3 % (11.0-15.5); WHITE BLOOD COUNT (AUTO) 7.3 K/uL (4.8-10.8)
[2020-07-20 07:10] LABS: BILIRUBIN,TOTAL 0.4 mg/dL (0.2-1.0); CREATININE 2.1 mg/dL (0.5-1.5); POTASSIUM 3.3 mmol/L (3.5-5.1)
[2020-07-20 07:36] VITALS: BP 125/53
[2020-07-20] MEDS: ASPIRIN 81 MG EC TAB PO SCH ×2 (09:00→12:27)
[2020-07-20] MEDS: APIXABAN 2.5 MG TABLET PO SCH ×2 (09:00→12:27)
[2020-07-20] MEDS: CEFEPIME HCL 1 GM VIAL IVP SCH ×2 (09:00→12:26)
[2020-07-20] MEDS: NEOMY SULF/BACITRAC ZN/POLY OINT 30GM TUBE TP SCH ×2 (09:00→12:30)
[2020-07-20] MEDS: HONEY 1 APPL/ML TUBE TP SCH (09:00)
[2020-07-20] MEDS: ISOSORBIDE MONO 30MG SR TAB PO SCH ×2 (09:00→12:27)
[2020-07-20 11:51] VITALS: BP 110/44
[2020-07-20 16:07] VITALS: BP 104/34
[2021-02-13] MEDS ORDERED: ISOS30TA92 PO (05:26)
[2021-02-13] MEDS ORDERED: LEVO25CA4 PO (05:26)
[2021-02-13] MEDS ORDERED: ASPI-1197 PO (05:26)
[2021-02-13] MEDS ORDERED: ATOR10 PO (05:26)
[2021-02-13] MEDS ORDERED: LINA290C PO (05:26)
[2021-02-13] MEDS ORDERED: APIX5TAB PO (05:26)
[2021-02-16] MEDS ORDERED: AMOX-426 PO (15:59)
[2021-02-16] MEDS ORDERED: ALBU18HF7 IH (15:59)
[2021-02-16] MEDS ORDERED: LEVO500T90 PO (23:41)
== END 2020-07-20 19:15 | DRG 853 ==
LOC: EDH 18:46 → EDHIP 22:05 → 3DH 07-12 01:25 → 2DH 07-14 17:13 → 4DH 07-17 18:22
PROVIDERS: ADMIT Internal Medicine; ATTEND Internal Medicine
PROC: 30233N1 Transfusion of Nonautologous Red Blood Cells into Peripheral Vein, Percutaneous Approach (ICD-10-PCS; 2020-07-11)
PROC: 5A1D70Z Performance of Urinary Filtration, Intermittent, Less than 6 Hours Per Day (ICD-10-PCS; 2020-07-11)
PROC: 5A1D70Z Performance of Urinary Filtration, Intermittent, Less than 6 Hours Per Day (ICD-10-PCS; 2020-07-13)
PROC: 5A09357 Assistance with Respiratory Ventilation, Less than 24 Consecutive Hours, Continuous Positive Airway Pressure (ICD-10-PCS; 2020-07-14)
PROC: 5A09357 Assistance with Respiratory Ventilation, Less than 24 Consecutive Hours, Continuous Positive Airway Pressure (ICD-10-PCS; 2020-07-15)
PROC: 5A1D70Z Performance of Urinary Filtration, Intermittent, Less than 6 Hours Per Day (ICD-10-PCS; 2020-07-15)
PROC: 0JH606Z Insertion of Pacemaker, Dual Chamber into Chest Subcutaneous Tissue and Fascia, Open Approach (ICD-10-PCS; principal; 2020-07-18)
PROC: 02HK3JZ Insertion of Pacemaker Lead into Right Ventricle, Percutaneous Approach (ICD-10-PCS; 2020-07-18)
PROC: 02H63JZ Insertion of Pacemaker Lead into Right Atrium, Percutaneous Approach (ICD-10-PCS; 2020-07-18)
PROC: 5A1D70Z Performance of Urinary Filtration, Intermittent, Less than 6 Hours Per Day (ICD-10-PCS; 2020-07-18)
PROC: 5A1D70Z Performance of Urinary Filtration, Intermittent, Less than 6 Hours Per Day (ICD-10-PCS; 2020-07-20)
DX: A41.9 Sepsis, unspecified organism (principal); J69.0 Pneumonitis due to inhalation of food and vomit; N18.6 End stage renal disease; J96.01 Acute respiratory failure with hypoxia; G92 Toxic encephalopathy; J18.9 Pneumonia, unspecified organism; I12.0 Hypertensive chronic kidney disease with stage 5 chronic kidney disease or end stage renal disease; I44.2 Atrioventricular block, complete; D62 Acute posthemorrhagic anemia; K92.2 Gastrointestinal hemorrhage, unspecified; D68.69 Other thrombophilia; I42.9 Cardiomyopathy, unspecified; E87.70 Fluid overload, unspecified; E11.22 Type 2 diabetes mellitus with diabetic chronic kidney disease; E78.5 Hyperlipidemia, unspecified; L89.159 Pressure ulcer of sacral region, unspecified stage; L89.620 Pressure ulcer of left heel, unstageable; R62.7 Adult failure to thrive; R13.10 Dysphagia, unspecified; N40.0 Benign prostatic hyperplasia without lower urinary tract symptoms; L89.329 Pressure ulcer of left buttock, unspecified stage; L89.319 Pressure ulcer of right buttock, unspecified stage; I25.10 Atherosclerotic heart disease of native coronary artery without angina pectoris; F03.90 Unspecified dementia, unspecified severity, without behavioral disturbance, psychotic disturbance, mood disturbance, and anxiety; E11.51 Type 2 diabetes mellitus with diabetic peripheral angiopathy without gangrene; R19.5 Other fecal abnormalities; I48.0 Paroxysmal atrial fibrillation; Z20.822 Contact with and (suspected) exposure to COVID-19; Z93.1 Gastrostomy status; Z99.2 Dependence on renal dialysis; Z95.1 Presence of aortocoronary bypass graft; Z86.73 Personal history of transient ischemic attack (TIA), and cerebral infarction without residual deficits; Z83.3 Family history of diabetes mellitus; Z82.49 Family history of ischemic heart disease and other diseases of the circulatory system; Z82.3 Family history of stroke; Z79.01 Long term (current) use of anticoagulants; Z68.25 Body mass index [BMI] 25.0-25.9, adult; Z74.01 Bed confinement status
CPT/HCPCS: 33208; 36415; 36600; 70450; 71045; 74018; 80048; 80053; 80076; 82270; 82435; 82550; 82803; 82947; 82948; 83605; 83690; 83735; 83874; 83880; 84100; 84132; 84145; 84295; 84484; 85018; 85025; 85027; 85610; 85730; 86850; 86900; 86901; 86923; 87040; 87077; 87186; 87426; 87804; 90935; 93005; 94660; 96365; 96366; 96375; 97039; 99291; C1785; G0378; J0330; J0456; J0690; J0692; J0696; J0885; J1265; J1630; J1644; J1756; J1940; J2250; J2405; J2704; J3010; J3370; J3490; J7050; J7070; P9016; Q9963; U0003

== ENCOUNTER 2020-07-21 17:27 | Emergency (ER) | payer OTHER ==
[~2020-07-21 17:27] MED LIST changes: +AMLO-258 PEG; +ATOR20TA65 PO; +HYDR-4153 PO; +ISOS30TA92 PO
[2020-07-21] MEDS ORDERED: DIATR MEGLU/DIATRIZOATE SODIUM 30 ML BOTTLE ONE (17:57)
[2021-02-13] MEDS ORDERED: LEVO25CA4 PO (05:26)
[2021-02-13] MEDS ORDERED: ATOR10 PO (05:26)
[2021-02-13] MEDS ORDERED: ASPI-1197 PO (05:26)
[2021-02-13] MEDS ORDERED: ISOS30TA92 PO (05:26)
[2021-02-13] MEDS ORDERED: APIX5TAB PO (05:26)
[2021-02-13] MEDS ORDERED: LINA290C PO (05:26)
[2021-02-16] MEDS ORDERED: AMOX-426 PO (15:59)
[2021-02-16] MEDS ORDERED: ALBU18HF7 IH (15:59)
[2021-02-16] MEDS ORDERED: LEVO500T90 PO (23:41)
== END 2020-07-22 | disposition home or self-care (01) ==
LOC: EDH 17:27
DX: K94.23 Gastrostomy malfunction (principal); E11.9 Type 2 diabetes mellitus without complications; E78.00 Pure hypercholesterolemia, unspecified
CPT/HCPCS: 43246; 74018; 99284; Q9963

== ENCOUNTER 2020-07-25 19:46 | Emergency (ER) | payer OTHER ==
[~2020-07-25 19:46] MED LIST changes: -FURO20TA4 PO; -LISI40TA9 PO; -PIND10TA2 PO; -SIMV-43 PO
[2020-07-25] MEDS ORDERED: DIATR MEGLU/DIATRIZOATE SODIUM 30 ML BOTTLE ONE (21:22)
== END 2020-07-26 04:04 | disposition home or self-care (01) ==
LOC: EDH 19:46
DX: T85.598A Other mechanical complication of other gastrointestinal prosthetic devices, implants and grafts, initial encounter (principal); K94.23 Gastrostomy malfunction; I12.0 Hypertensive chronic kidney disease with stage 5 chronic kidney disease or end stage renal disease; E11.22 Type 2 diabetes mellitus with diabetic chronic kidney disease; N18.6 End stage renal disease; Z99.2 Dependence on renal dialysis
CPT/HCPCS: 43762; 74018; 99284; Q9963

== ENCOUNTER 2020-09-03 11:28 | Emergency (ER) | payer OTHER ==
[2020-09-03] MEDS ORDERED: BISACODYL 10 MG SUPP.RECT RC ONE (13:05)
[2020-09-03 13:09] LABS: BASOPHILS % (AUTO) 0.5 % (0.0-5.0); EOSINOPHILS % (AUTO) 1.2 % (0.0-8.0); HEMATOCRIT 33.8 % (42-54); LYMPHOCYTES % (AUTO) 26.5 % (21.0-51.0); MEAN CORPUSCULAR HEMOGLOBIN 29.5 pg (27.0-33.0); MEAN CORPUSCULAR HGB CONC 33.7 g/dL (32.0-36.0); MEAN CORPUSCULAR VOLUME 87.3 fL (79-99); MONOCYTES % (AUTO) 6.2 % (3.0-13.0); NEUTROPHILS % (AUTO) 65.1 % (40.0-77.0); PLATELET COUNT (AUTO) 188 K/uL (130-400); RED BLOOD CELL COUNT(AUTO) 3.87 MIL/uL (4.50-6.20); RED CELL DISTRIBUTION WIDTH 14.7 % (11.0-15.5); WHITE BLOOD COUNT (AUTO) 7.4 K/uL (4.8-10.8)
[2020-09-03 13:24] LABS: CREATININE 1.4 mg/dL (0.5-1.5); POTASSIUM 3.7 mmol/L (3.5-5.1)
[2020-09-03 13:28] LABS: ALBUMIN 2.8 g/dL (3.5-5.0); BILIRUBIN,TOTAL 0.6 mg/dL (0.2-1.0); TOTAL PROTEIN, SERUM 7.6 g/dL (6.0-8.3)
== END 2020-09-03 17:23 | disposition home or self-care (01) ==
LOC: EDH 11:28
DX: K59.00 Constipation, unspecified (principal); I48.91 Unspecified atrial fibrillation; E11.22 Type 2 diabetes mellitus with diabetic chronic kidney disease; N18.6 End stage renal disease; E78.00 Pure hypercholesterolemia, unspecified; Z86.73 Personal history of transient ischemic attack (TIA), and cerebral infarction without residual deficits; Z87.891 Personal history of nicotine dependence
CPT/HCPCS: 36415; 74018; 80053; 83605; 85025

== ENCOUNTER → 2020-09-08 | Outpatient (CLI) | payer OTHER | END | disposition home or self-care (01) | LOC: RAH 11:02 | PROVIDERS: ATTEND Internal Medicine Gastroenterology | DX: R13.13 Dysphagia, pharyngeal phase (principal); Z93.1 Gastrostomy status; R63.3 Feeding difficulties | CPT/HCPCS: 74230; 92611 ==

== ENCOUNTER 2020-12-08 21:23 | Observation (INO) | payer OTHER ==
[~2020-12-08] VITALS: Ht 165.1 cm; Wt 63.5 kg
[2020-12-08 21:33] VITALS: BP 168/73
[2020-12-08 22:22] LABS: BASOPHILS % (AUTO) 0.3 % (0.0-5.0); EOSINOPHILS % (AUTO) 0.8 % (0.0-8.0); HEMATOCRIT 28.8 % (42-54); LYMPHOCYTES % (AUTO) 16.2 % (21.0-51.0); MEAN CORPUSCULAR HEMOGLOBIN 27.4 pg (27.0-33.0); MEAN CORPUSCULAR HGB CONC 31.9 g/dL (32.0-36.0); MEAN CORPUSCULAR VOLUME 85.7 fL (79-99); MONOCYTES % (AUTO) 5.8 % (3.0-13.0); NEUTROPHILS % (AUTO) 76.1 % (40.0-77.0); PLATELET COUNT (AUTO) 198 K/uL (130-400); RED BLOOD CELL COUNT(AUTO) 3.36 MIL/uL (4.50-6.20); RED CELL DISTRIBUTION WIDTH 17.3 % (11.0-15.5); WHITE BLOOD COUNT (AUTO) 10.7 K/uL (4.8-10.8)
[2020-12-08 22:33] LABS: INR 1.27 (0.85-1.15); PROTHROMBIN TIME 13.5 SEC (9.6-11.6)
[2020-12-08 22:44] LABS: CARBON DIOXIDE 21 mmol/L (21-32); CHLORIDE 102 mmol/L (101-111); CREATININE 1.8 mg/dL (0.5-1.5); GLOMERULAR FILTR. RATE CALC 39 mL/min (>60); GLUCOSE,RANDOM 59 mg/dL (70-105); POTASSIUM 4.1 mmol/L (3.5-5.1); SODIUM SERUM 136 mmol/L (136-145); UREA NITROGEN, BLOOD 17 mg/dL (7-18)
[2020-12-08 22:48] LABS: ALANINE AMINOTRANSFERASE 7 U/L (12-78); ALBUMIN 1.8 g/dL (3.5-5.0); ASPARTATE AMINOTRANSFERASE 49 U/L (10-37); BILIRUBIN,TOTAL 0.4 mg/dL (0.2-1.0); TOTAL PROTEIN, SERUM 7.1 g/dL (6.0-8.3)
[2020-12-08 22:53] LABS: APPEARANCE,URINE Cloudy (CLEAR); BILIRUBIN,URINE Negative (NEGATIVE); COLOR,URINE Red (YELLOW); GLUCOSE, URINE (UA) Negative (NEGATIVE); KETONES,URINE Negative (NEGATIVE); LEUKOCYTE ESTERASE ,URINE Small (NEGATIVE); NITRATE,URINE Negative (NEGATIVE); OCCULT BLOOD,URINE Large (NEGATIVE); PROTEIN,URINE POS 2+ mg/dL (NEGATIVE); UROBILINOGEN,URINE 0.2 mg/dL (0.2-1.0)
[2020-12-08 23:00] LABS: RBC,URINE >100 /HPF (0-1)
[2020-12-08 23:04] LABS: BACTERIA,URINE Few /HPF (None Seen); MUCUS,URINE Rare LPF (None Seen); SQUAMOUS EPITHELIAL CELL,UR 0-2 /HPF (0-2)
[2020-12-08 23:17] LABS: LIPASE < 50 U/L (114-286)
[2020-12-09 00:08] LABS: APPEARANCE,URINE Clear (CLEAR); BILIRUBIN,URINE Negative (NEGATIVE); COLOR,URINE Yellow (YELLOW); GLUCOSE, URINE (UA) Negative (NEGATIVE); KETONES,URINE Negative (NEGATIVE); LEUKOCYTE ESTERASE ,URINE Negative (NEGATIVE); NITRATE,URINE Negative (NEGATIVE); OCCULT BLOOD,URINE Large (NEGATIVE); PROTEIN,URINE POS 2+ mg/dL (NEGATIVE); UROBILINOGEN,URINE 0.2 mg/dL (0.2-1.0)
[2020-12-09 00:22] LABS: BACTERIA,URINE Few /HPF (None Seen); RBC,URINE 26-50 /HPF (0-1); SQUAMOUS EPITHELIAL CELL,UR None Seen /HPF (0-2); WBC,URINE 0-1 /HPF (0-1)
[2020-12-09] MEDS ORDERED: ACETAMINOPHEN 325 MG TAB PO PRN (00:45)
[2020-12-09] MEDS ORDERED: MORPHINE 4 MG SYG IVP PRN (00:45)
[2020-12-09 02:23] VITALS: BP 167/81
[2020-12-09] MEDS ORDERED: LINA290C PO (05:13)
[2020-12-09] MEDS ORDERED: LEVO25CA4 PO (05:18)
[2020-12-09 06:13] VITALS: BP 129/74
[2020-12-09 07:28] VITALS: BP 164/73
[2020-12-09] MEDS ORDERED: LEVOTHYROXINE 25 MCG TABLET PO SCH (08:16)
[2020-12-09 08:49] VITALS: BP 162/74
[2020-12-09] MEDS ORDERED: ***HM*** (Linaclotide (Linzess) 290 MCG) PO SCH (09:00)
[2020-12-09] MEDS ORDERED: ASPIRIN 81MG CHEW TAB PO SCH (09:00)
[2020-12-09] MEDS ORDERED: APIXABAN 5 MG TABLET PO SCH (09:00)
[2020-12-09] MEDS ORDERED: ISOSORBIDE MONO 30MG SR TAB PO SCH (09:00)
[2020-12-09 10:32] VITALS: BP 178/76
[2020-12-09 12:01] VITALS: BP 167/71
[2020-12-09] MEDS ORDERED: ATORVASTATIN 20 MG TABLET PO SCH (21:00)
== END 2020-12-09 08:45 | disposition home or self-care (01) ==
LOC: EDH 21:41 → EDHIP 12-09 00:10
PROVIDERS: ADMIT Internal Medicine; ATTEND Internal Medicine
DX: R33.9 Retention of urine, unspecified (principal); I48.91 Unspecified atrial fibrillation; I10 Essential (primary) hypertension; E78.5 Hyperlipidemia, unspecified; E11.51 Type 2 diabetes mellitus with diabetic peripheral angiopathy without gangrene; I25.10 Atherosclerotic heart disease of native coronary artery without angina pectoris; Z86.73 Personal history of transient ischemic attack (TIA), and cerebral infarction without residual deficits; F03.90 Unspecified dementia, unspecified severity, without behavioral disturbance, psychotic disturbance, mood disturbance, and anxiety; Z79.01 Long term (current) use of anticoagulants; Z89.512 Acquired absence of left leg below knee; N13.9 Obstructive and reflux uropathy, unspecified; I25.2 Old myocardial infarction
CPT/HCPCS: 36415; 51702; 71045; 74176; 80053; 81001; 83605; 83690; 85025; 85610; 85730; 93005; 99285; G0378 ×9

== ENCOUNTER 2021-06-10 16:06 | Emergency (ER) | payer OTHER ==
[~2021-06-10] VITALS: Ht 152.4 cm; Wt 72.6 kg
[~2021-06-10 16:06] MED LIST changes: +ALBU18HF7 IH; -AMLO-258 PEG; +AMOX-426 PO; +ASPI-1197 PO; +ATOR10 PO; -DUTA0.5C37 PO; -GLIP1TAB6 PO; -HYDR-4153 PO; +LEVO25CA4 PO; +LEVO500T90 PO; +LINA290C PO; -NITR0.4T SL
[2021-06-10 16:50] LABS: BASOPHILS % (AUTO) 0.4 % (0.0-5.0); EOSINOPHILS % (AUTO) 1.5 % (0.0-8.0); HEMATOCRIT 42.3 % (42-54); LYMPHOCYTES % (AUTO) 20.6 % (21.0-51.0); MEAN CORPUSCULAR HEMOGLOBIN 29.9 pg (27.0-33.0); MEAN CORPUSCULAR HGB CONC 33.8 g/dL (32.0-36.0); MEAN CORPUSCULAR VOLUME 88.5 fL (79-99); MONOCYTES % (AUTO) 5.1 % (3.0-13.0); NEUTROPHILS % (AUTO) 72.1 % (40.0-77.0); PLATELET COUNT (AUTO) 164 K/uL (130-400); RED BLOOD CELL COUNT(AUTO) 4.78 MIL/uL (4.50-6.20); RED CELL DISTRIBUTION WIDTH 13.1 % (11.0-15.5); WHITE BLOOD COUNT (AUTO) 7.2 K/uL (4.8-10.8)
[2021-06-10 17:05] LABS: POTASSIUM 4.6 mmol/L (3.5-5.1)
[2021-06-10 17:09] LABS: ALBUMIN 3.4 g/dL (3.5-5.0); BILIRUBIN,TOTAL 0.4 mg/dL (0.2-1.0); MAGNESIUM 2.6 mg/dL (1.80-2.40); TOTAL PROTEIN, SERUM 7.4 g/dL (6.0-8.3)
[2021-06-10] MEDS ORDERED: BISACODYL 10 MG SUPP.RECT RC ONE (17:30)
[2021-06-10 17:58] LABS: APPEARANCE,URINE CLEAR (CLEAR); BILIRUBIN,URINE Negative (NEGATIVE); COLOR,URINE Yellow (YELLOW); GLUCOSE, URINE (UA) 500 mg/dL (NEGATIVE); KETONES,URINE Negative (NEGATIVE); LEUKOCYTE ESTERASE ,URINE Negative (NEGATIVE); NITRATE,URINE Negative (NEGATIVE); OCCULT BLOOD,URINE Negative (NEGATIVE); PH,URINE 7.5 (5.0-8.0); PROTEIN,URINE 300 mg/dL (NEGATIVE); UROBILINOGEN,URINE 0.2 mg/dL (0.2-1.0)
[2021-06-10 18:03] LABS: BACTERIA,URINE Rare /HPF (None Seen); MUCUS,URINE Rare LPF (None Seen); RBC,URINE 0-1 /HPF (0-1); SQUAMOUS EPITHELIAL CELL,UR Few /HPF (0-2)
[2021-06-10] MEDS ORDERED: LACT10SO32 PO (18:43)
[2021-06-10] MEDS ORDERED: MACR100 PO (18:43)
[2021-06-10] MEDS ORDERED: NITROFURANTOIN MONOHYD/M-CRYST 100 MG CAPSULE PO ONE (19:45)
[2021-06-10] MEDS ORDERED: CLONIDINE HCL 0.2 MG TABLET PO ONE (20:00)
[2021-06-10 20:17] VITALS: BP 217/97
== END 2021-06-10 22:29 | disposition home or self-care (01) ==
LOC: EDH 16:06
DX: N39.0 Urinary tract infection, site not specified (principal); K59.00 Constipation, unspecified; E11.9 Type 2 diabetes mellitus without complications; F03.90 Unspecified dementia, unspecified severity, without behavioral disturbance, psychotic disturbance, mood disturbance, and anxiety; E03.9 Hypothyroidism, unspecified; I25.2 Old myocardial infarction; Z79.01 Long term (current) use of anticoagulants; Z79.82 Long term (current) use of aspirin; Z79.899 Other long term (current) drug therapy; Z86.73 Personal history of transient ischemic attack (TIA), and cerebral infarction without residual deficits
CPT/HCPCS: 36415; 74176; 80053; 81001; 83735; 84484; 85025; 87088; 93005

== ENCOUNTER 2021-10-13 08:17 | Observation (INO) | payer MEDICARE, OTHER ==
[~2021-10-13] VITALS: Ht 160 cm; Wt 62.6 kg
[~2021-10-13 08:17] MED LIST changes: +LACT10SO32 PO; +MACR100 PO
[2021-10-13] MEDS ORDERED: IPRATROPIUM/ALBUTEROL SULFATE 3 ML SOLUTION IH SCH (08:30)
[2021-10-13] MEDS ORDERED: SOLU-MEDROL 125MG VIAL IVP SCH (08:30)
[2021-10-13 08:45] LABS: BASOPHILS % (AUTO) 0.4 % (0.0-5.0); EOSINOPHILS % (AUTO) 2.7 % (0.0-8.0); LYMPHOCYTES % (AUTO) 16.9 % (21.0-51.0); MEAN CORPUSCULAR HGB CONC 33.1 g/dL (32.0-36.0); MEAN CORPUSCULAR VOLUME 90.5 fL (79-99); MONOCYTES % (AUTO) 6.3 % (3.0-13.0); NEUTROPHILS % (AUTO) 73.2 % (40.0-77.0); PLATELET COUNT (AUTO) 151 K/uL (130-400); RED BLOOD CELL COUNT(AUTO) 4.97 MIL/uL (4.50-6.20); RED CELL DISTRIBUTION WIDTH 13.2 % (11.0-15.5); WHITE BLOOD COUNT (AUTO) 8.2 K/uL (4.8-10.8)
[2021-10-13 08:57] LABS: ABG BASE EXCESS -4.2 mmol/L (-2.0-3.0); ABG HCO3 20.3 mmol/L (21.0-28.0); ABG OXYGEN SATURATION 88.9 % (95.0-99.0); ABG PCO2 36 mmHg (35-48)
[2021-10-13 09:00] LABS: ALBUMIN 3.1 g/dL (3.5-5.0); BILIRUBIN,TOTAL 0.6 mg/dL (0.2-1.0); CREATININE 2.6 mg/dL (0.5-1.5); POTASSIUM 4.1 mmol/L (3.5-5.1); TOTAL PROTEIN, SERUM 7.7 g/dL (6.0-8.3)
[2021-10-13 09:09] LABS: B-TYPE NATRIURETIC PEPTIDE 2530 pg/mL (0-100)
[2021-10-13] MEDS ORDERED: FUROSEMIDE 20MG VIAL ONE (09:24)
[2021-10-13] MEDS ORDERED: FUROSEMIDE 20MG VIAL IV SCH (09:30)
[2021-10-13] MEDS: LOSARTAN 50 MG TABLET PO SCH (11:04)
[2021-10-13] MEDS: ISOSORBIDE MONO 30MG SR TAB PO SCH (11:04)
[2021-10-13 12:00] VITALS: BP 94/52
[2021-10-13 14:45] VITALS: BP 144/72
[2021-10-13 15:00] VITALS: BP 93/53
[2021-10-13 19:05] VITALS: BP 136/57
[2021-10-13] MEDS: FUROSEMIDE 20MG VIAL IV SCH (20:33)
[2021-10-13] MEDS: POTASSIUM CHLORIDE 10% ELIXIR 20 MEQ/15 ML UDCUP PO SCH (20:34)
[2021-10-13 20:42] LABS: APPEARANCE,URINE CLEAR (CLEAR); BILIRUBIN,URINE NEGATIVE (NEGATIVE); COLOR,URINE YELLOW (YELLOW); GLUCOSE, URINE (UA) 250 mg/dL (NEGATIVE); KETONES,URINE NEGATIVE (NEGATIVE); LEUKOCYTE ESTERASE ,URINE NEGATIVE (NEGATIVE); NITRATE,URINE NEGATIVE (NEGATIVE); OCCULT BLOOD,URINE TRACE-INTACT (NEGATIVE); PROTEIN,URINE 100 mg/dL (NEGATIVE); UROBILINOGEN,URINE 0.2 mg/dL (0.2-1.0)
[2021-10-13 20:54] LABS: BACTERIA,URINE Few /HPF (None Seen); MUCUS,URINE Few LPF (None Seen); SQUAMOUS EPITHELIAL CELL,UR Few /HPF (0-2)
[2021-10-13] MEDS: INSULIN LISPRO 100 UNIT/ML 3ML SQ SCH (21:17)
[2021-10-13 23:18] VITALS: BP 115/46
[2021-10-14 03:04] VITALS: BP 149/80
[2021-10-14 03:38] LABS: BASOPHILS % (AUTO) 0.1 % (0.0-5.0); HEMATOCRIT 38.9 % (42-54); LYMPHOCYTES % (AUTO) 9.9 % (21.0-51.0); MEAN CORPUSCULAR HEMOGLOBIN 31.1 pg (27.0-33.0); MEAN CORPUSCULAR HGB CONC 33.9 g/dL (32.0-36.0); MEAN CORPUSCULAR VOLUME 91.5 fL (79-99); MONOCYTES % (AUTO) 3.7 % (3.0-13.0); NEUTROPHILS % (AUTO) 85.9 % (40.0-77.0); PLATELET COUNT (AUTO) 180 K/uL (130-400); RED BLOOD CELL COUNT(AUTO) 4.25 MIL/uL (4.50-6.20); RED CELL DISTRIBUTION WIDTH 13.2 % (11.0-15.5); WHITE BLOOD COUNT (AUTO) 7.6 K/uL (4.8-10.8)
[2021-10-14 03:58] LABS: CREATININE 3.1 mg/dL (0.5-1.5); PHOSPHORUS 3.6 mg/dL (2.5-4.9); POTASSIUM 4.8 mmol/L (3.5-5.1)
[2021-10-14 04:14] LABS: B-TYPE NATRIURETIC PEPTIDE 1440 pg/mL (0-100)
[2021-10-14 07:00] VITALS: BP 151/80
[2021-10-14] MEDS: INSULIN LISPRO 100 UNIT/ML 3ML SQ SCH (07:30)
[2021-10-14] MEDS: POTASSIUM CHLORIDE 10% ELIXIR 20 MEQ/15 ML UDCUP PO SCH (08:01)
[2021-10-14] MEDS ORDERED: LEVOTHYROXINE 25 MCG TABLET PO SCH (08:19)
[2021-10-14] MEDS ORDERED: LACTULOSE 20 GM/30 ML UDCUP PO PRN (08:30)
[2021-10-14] MEDS: ISOSORBIDE MONO 30MG SR TAB PO SCH (08:42)
[2021-10-14] MEDS: LOSARTAN 50 MG TABLET PO SCH (08:43)
[2021-10-14] MEDS: FUROSEMIDE 20MG VIAL IV SCH (08:46)
[2021-10-14] MEDS ORDERED: ASPIRIN 81MG CHEW TAB PO SCH ×2 (09:00)
[2021-10-14] MEDS ORDERED: LINACLOTIDE 290 MCG PO SCH (09:00)
[2021-10-14] MEDS ORDERED: APIXABAN 5 MG TABLET PO SCH ×2 (09:00→21:00)
[2021-10-14] MEDS ORDERED: FURO20TA4 PO (09:22)
[2021-10-14] MEDS ORDERED: APIX2.5T PO (09:27)
[2021-10-14] MEDS ORDERED: ATORVASTATIN 10 MG TABLET PO SCH (21:00)
[2021-10-15] MEDS ORDERED: FUROSEMIDE 20 MG TABLET PO SCH (09:00)
== END 2021-10-14 13:20 | disposition home or self-care (01) ==
LOC: EDH 08:17 → INTOOBSV 10:04 → EDHIP 10:04 → 2AH 11:30
PROVIDERS: ADMIT Family Medicine; ATTEND Family Medicine
DX: E87.70 Fluid overload, unspecified (principal); Z20.822 Contact with and (suspected) exposure to COVID-19; I13.0 Hypertensive heart and chronic kidney disease with heart failure and stage 1 through stage 4 chronic kidney disease, or unspecified chronic kidney disease; I50.33 Acute on chronic diastolic (congestive) heart failure; N18.4 Chronic kidney disease, stage 4 (severe); E11.22 Type 2 diabetes mellitus with diabetic chronic kidney disease; N17.9 Acute kidney failure, unspecified; E11.51 Type 2 diabetes mellitus with diabetic peripheral angiopathy without gangrene; I25.10 Atherosclerotic heart disease of native coronary artery without angina pectoris; I48.0 Paroxysmal atrial fibrillation; J44.1 Chronic obstructive pulmonary disease with (acute) exacerbation; E03.9 Hypothyroidism, unspecified; E78.5 Hyperlipidemia, unspecified; F03.90 Unspecified dementia, unspecified severity, without behavioral disturbance, psychotic disturbance, mood disturbance, and anxiety; Z79.01 Long term (current) use of anticoagulants; Z79.82 Long term (current) use of aspirin; Z79.890 Hormone replacement therapy; Z79.899 Other long term (current) drug therapy; Z86.73 Personal history of transient ischemic attack (TIA), and cerebral infarction without residual deficits; Z89.512 Acquired absence of left leg below knee; Z95.0 Presence of cardiac pacemaker; Z95.1 Presence of aortocoronary bypass graft; Z99.2 Dependence on renal dialysis; Z79.4 Long term (current) use of insulin
CPT/HCPCS: 36415 ×2; 36600; 71045; 71250; 76770; 80048; 80053; 81001; 82550 ×3; 82803; 82948 ×4; 83874 ×3; 83880 ×2; 84100; 84484 ×4; 85025 ×2; 87635; 87804 ×2; 93005 ×2; 93306; 93356; 94640; 96374; 96375; 96376 ×2; 99291; C9803; G0378 ×2; J1940 ×3; J2930

== ENCOUNTER 2023-05-22 01:06 | Emergency (ER) | payer OTHER ==
[~2023-05-22] VITALS: Ht 170.2 cm; Wt 76.2 kg
[~2023-05-22 01:06] MED LIST changes: +AEC81 PO; -ALBU18HF7 IH; -AMOX-426 PO; -APIX5TAB PO; -ASPI-1005 PO; -ASPI-1197 PO; -ATOR10 PO; +FURO20TA4 PO; +ISOS10TA8 PO; -ISOS30TA92 PO; -LACT10SO32 PO; +LATA2.5D14 OU; -LEVO25CA4 PO; +LEVO25TA54 PO; -LEVO500T90 PO; -LINA290C PO; +LOSA50TA64 PO; -MACR100 PO; +METO50 PO
[2023-05-22 02:29] LABS: BASOPHILS # (AUTO) 0.03 K/uL (0.00-0.20); BASOPHILS % (AUTO) 0.3 % (0.0-5.0); EOSINOPHILS # (AUTO) 0.15 K/uL (0.00-0.70); EOSINOPHILS % (AUTO) 1.6 % (0.0-8.0); HEMATOCRIT 37.2 % (42-54); IMMATURE GRANULOCYTE ABSOLUTE 0.05 K/uL (0-1); LYMPHOCYTES # (AUTO) 1.3 K/uL (1.0-4.8); LYMPHOCYTES % (AUTO) 13.3 % (21.0-51.0); MEAN CORPUSCULAR HEMOGLOBIN 30.1 pg (27.0-33.0); MEAN CORPUSCULAR HGB CONC 33.9 g/dL (32.0-36.0); MONOCYTES # (AUTO) 0.4 K/uL (0.1-1.0); MONOCYTES % (AUTO) 4.3 % (3.0-13.0); NEUTROPHILS # (AUTO) 7.7 K/uL (1.8-7.7); PLATELET COUNT (AUTO) 185 K/uL (130-400); RED BLOOD CELL COUNT(AUTO) 4.18 MIL/uL (4.50-6.20); RED CELL DISTRIBUTION WIDTH 14.5 % (11.0-15.5); WHITE BLOOD COUNT (AUTO) 9.6 K/uL (4.8-10.8)
[2023-05-22 02:40] LABS: CREATININE 2.4 mg/dL (0.5-1.5); POTASSIUM 4.7 mmol/L (3.5-5.1)
[2023-05-22 02:46] LABS: ALBUMIN 3.3 g/dL (3.5-5.0); BILIRUBIN,TOTAL 0.5 mg/dL (0.2-1.0); TOTAL PROTEIN, SERUM 7.6 g/dL (6.0-8.3)
[2023-05-22] MEDS ORDERED: PEG 3350/NA SULF,BICARB,CL/KCL 4000 ML SOLN PO ONE (05:00)
[2023-05-22] MEDS ORDERED: NA P230E RC (07:08)
[2023-05-22] MEDS ORDERED: MAGN800O2 PO (07:10)
[2023-05-22 08:10] VITALS: BP 147/71; PULSE 72; RESP 17; O2SAT 98
== END 2023-05-22 08:35 | disposition home or self-care (01) ==
LOC: EDH 01:06
DX: E11.22 Type 2 diabetes mellitus with diabetic chronic kidney disease (principal); I13.0 Hypertensive heart and chronic kidney disease with heart failure and stage 1 through stage 4 chronic kidney disease, or unspecified chronic kidney disease; N18.4 Chronic kidney disease, stage 4 (severe); J90 Pleural effusion, not elsewhere classified; J45.909 Unspecified asthma, uncomplicated; Z79.82 Long term (current) use of aspirin; Z79.899 Other long term (current) drug therapy; Z98.890 Other specified postprocedural states
CPT/HCPCS: 36415; 71045; 74176; 80053; 82150; 82550; 83690; 84484; 85025